=== PATIENT | female | born 1965 | race Caucasian/White ===

== ENCOUNTER 2024-08-13 09:34 | Outpatient (AMB) | payer OTHER, SELFPAY ==
--- NOTE | 2024-08-13 09:39 | MHC.PC.OV ---
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 Intake Note: New patient visit Allergies No Known Allergies Allergy (Verified 08/13/24 09:43) Tobacco use date assessed: 08/13/24 Dental Screening Dental Screen Date: 08/13/24 Did you have a dental visit in the last 12 months?: Yes Did you have a dental problem in the last 6 months where you did not have access to dental care?: No Was dental information given to patient?: Patient has dentist HPI HPI Comments History of Present Illness Details The patient is a 58-year-old female with a past medical history of hyperlipidemia, anxiety, panic attacks, PTSD, vaginal atrophy presenting for follow-up. She is transferring from [facility] before which she transferred from [place] Behavioral health: She was following with a psychiatrist [place]. On Prozac, trazodone and infrequently Ativan. She was getting EMDR treatments at the trauma center [place] which she has completed. She would like to see a therapist. We will continue to prescribe her medications. 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 She was referred to local OBGYN in her last visit. Following with Nancy Conti. On 2x/week estradiol Has a family history of skin cancer and was following with dermatology 2x annually in [place]. Needs local dermatology She has a history of neck, upper and low back pain. She has seen chiro and had trigger points in the past. She would like to pursue physiatry referral and would like someone local to do trigger point therapy Mammogram UTD Colonoscopy at age 47 and again at age 52 and was to repeat at age 62 ROS CONSTITUTIONAL: Denies weight loss, fever and chills. HEENT: Denies changes in vision and hearing. RESPIRATORY: Denies SOB and cough. CV: Denies palpitations and CP GI: Denies abdominal pain, nausea, vomiting and diarrhea. : Denies dysuria and urinary frequency. MSK: Denies new myalgia and joint pain. SKIN: Denies rash and pruritus. NEUROLOGICAL: Denies headache PSYCHIATRIC: Denies recent changes in mood. PHYSICAL EXAM: GENERAL: Alert and oriented x 3. NAD EYES: EOMI. Anicteric. HENT: Moist mucous membranes. No scleral icterus. No cervical lymphadenopathy. LUNGS: Clear to auscultation bilaterally. CARDIOVASCULAR: Regular rate and rhythm. No murmur. No JVD. ABDOMEN: Soft, non-tender +bs EXTREMITIES: No edema. Non-tender. SKIN: No rashes or lesions. Warm. NEUROLOGIC: No focal neurological deficits. CN II-XII grossly intact PSYCHIATRIC: Cooperative. Appropriate mood and affect [facility] Medical History (Updated 08/13/24 @ 10:27 by Lina Robin MD) Ganglion cyst of wrist Surgical History (Updated 08/13/24 @ 09:47 by Snow Garcia CMA) H/O: hysterectomy H/O rhinoplasty History of tonsillectomy Family History (Updated 08/13/24 @ 09:50 by Snow Garcia CMA) Mother Diabetes Breast cancer Hypercholesteremia COPD (chronic obstructive pulmonary disease) Maternal Grandmother Pancreatic cancer Breast cancer Paternal Grandmother Pancreatic cancer Hypercholesteremia Sister Breast cancer Father Glaucoma Other FH: mental illness Substance abuse Social History (Updated 08/13/24 @ 09:51 by Snow Garcia CMA) Housing: Apartment Alcohol intake: current Patient Tobacco Use Status: Never used Tobacco e-Cigarette/Vaping Use: Never Used Second Hand Smoke Exposure: Yes (past) service: No Current occupational status: retired Cognitive needs: No Hearing needs: No Vision needs: Yes (glasses) Questionnaire PHQ-9 Over the last 2 weeks, how often have you been bothered by any of the following problems? 1. Little interest or pleasure in doing things: not at all 2. Feeling down, depressed, or hopeless: not at all 3. Trouble falling or staying asleep, or sleeping too much: several days 4. Feeling tired or having little energy: not at all 5. Poor appetite or overeating: not at all 6. Feeling bad about yourself - or that you are a failure or have let yourself or your family down: not at all 7. Trouble concentrating on things, such as reading the newspaper or watching television: not at all 8. Moving or speaking so slowly that other people could have noticed. Or the opposite - being so fidgety or restless that you have been moving around a lot more than usual: not at all 9. Thoughts that you would be better off or of hurting yourself in some way: not at all Total score: 1 Depression Screening Interpretation: Negative Depression Screening Done: Yes 57876 - PHQ-9 Billing: Yes Source: Developed by Drs. Grady Pacheco, Chikis Salazar, Frederic Cummings and colleagues, with an educational nitin from [employer]. Thrive Questionnaire Date Thrive assessed: 08/13/24 I am a: Patient What is your living situation today?: I have a steady place to live Within the past 12 months, did the food you bought not last and you didn't have the money to get more?: Never true Within the past 12 months, did you worry whether your food would run out before you got money to buy more?: Never true Do you have trouble paying for medicines?: No Do you have trouble getting transportation to medical appointments?: No Do you have trouble paying your heating and electricity bill?: No Do you have trouble taking care of your child, family member or friend?: No Do you have trouble with day-to-day activities such as bathing, preparing meals, shopping, managing finances, etc.?: No Are you currently unemployed and looking for a job?: No Are you interested in more education?: No Please select the resources that you would like help with: None Currently or been in a relationship where the following occur: I choose not to answer THRIVE Score: 0 AUDIT C Alcohol Use Questionnaire (AUDIT-C) 1. How often do you have a drink containing alcohol?: 2-3 times a week 2. How many drinks containing alcohol do you have on a typical day when you are drinking?: 1 or 2 3. How often do you have six or more drinks on one occasion?: Never Total Score: 3 ALAN-7 AMB Questionnaire ALAN-7 Date ALAN - 7 assessed: 08/13/24 Feeling nervous, anxious, or on edge: 1 = Several days Not being able to stop or control worryin = Not at all Worrying too much about different things: 0 = Not at all Trouble relaxin = Not at all Being so restless that it is hard to sit still: 0 = Not at all Becoming easily annoyed or irritable: 0 = Not at all Feeling afraid as if something awful might happen: 0 = Not at all Total ALAN-7 score (0-4 normal; 5-9 mild; 10-14 moderate; 15-21 severe): 1 Source: Developed by Drs. Grady Pacheco, Chikis Salazar, Frederic Cummings and colleagues, with an educational nitin from [employer]. Physical exam (Primary Care) Vital Signs: Last Vital Signs Pulse 68 08/13/24 09:51 BP 104/64 08/13/24 09:51 Pulse Ox 97 08/13/24 09:51 Oxygen Delivery Method Room Air 08/13/24 09:51 BMI result Body Mass Index 24.9 Tobacco/Smoking Status: Tobacco use Status Patient Tobacco Use Status Never used Tobacco 08/13/24 09:51 PHQ-9: PHQ-9 Score PHQ-9: Total score 1 08/13/24 09:41 Depression Screening Interpretation: Negative Currently or been in a relationship where the following occur: I choose not to answer Coding Level of Care Code Est Pt Level 5 (32535) Diagnoses Chronic bilateral low back pain, unspecified whether sciatica present M54.50; G89.29 Chronicity: chronic Back pain laterality: bilateral Sciatica presence: unspecified whether sciatica present Cervicalgia M54.2 Family history of skin cancer Z80.8 Anxiety F41.9 MDD (major depressive disorder), recurrent, in partial remission F33.41 Time Spent (min) 45 Assessment & Plan Assessment & Plan (1) Low back pain: Code(s): M54.50 - Low back pain, unspecified Category: Medical Qualifiers: Chronicity: chronic Back pain laterality: bilateral Sciatica presence: unspecified whether sciatica present Qualified Code(s): M54.50 - Low back pain, unspecified; G89.29 - Other chronic pain Plan: referral to physiatry referral to [facility] (2) Cervicalgia: Code(s): M54.2 - Cervicalgia Category: Medical Plan: see above. stable (3) Family history of skin cancer: Code(s): Z80.8 - Family history of malignant neoplasm of other organs or systems Category: Medical Plan: referral placed to dermatology (4) Anxiety: Code(s): F41.9 - Anxiety disorder, unspecified Category: Medical Plan: stable on current medications. She is tapering down to 30mg on SSRI (5) MDD (major depressive disorder), recurrent, in partial remission: Code(s): F33.41 - Major depressive disorder, recurrent, in partial remission Category: Medical Plan: stable. referral to psychology Orders: Orders PT Evaluation and Treatment Today M54.2 - Cervicalgia, M54.50 - Low back pain, unspecified Referrals Physical Medicine and Rehabilitation Referral M54.2 - Cervicalgia, M54.50 - Low back pain, unspecified Dermatology Referral Z80.8 - Family history of malignant neoplasm of other organs or systems Medications: New fluoxetine (Prozac) 30 mg (3 x 10 mg) PO DAILY 90 days 270 caps 3RF lorazepam 0.5 mg PO BID 60 tabs 0RF Refilled trazodone 50 mg PO BEDTIME PRN 90 tabs 3RF sleep
[2024-08-13 09:51] VITALS: BP 104/64; PULSE 68; O2SAT 97; BMI 24.9
== END 2024-08-13 10:25 | disposition home or self-care (01) ==
LOC: HO.HMCFM 09:35
PROVIDERS: Visit Provider Internal Medicine
DX: M54.50 Low back pain, unspecified (principal); G89.29 Other chronic pain; F33.41 Major depressive disorder, recurrent, in partial remission; M54.2 Cervicalgia; Z80.8 Family history of malignant neoplasm of other organs or systems; F41.9 Anxiety disorder, unspecified

== ENCOUNTER 2024-11-08 15:42 | Outpatient (AMB) | payer OTHER, SELFPAY ==
--- NOTE | 2024-11-08 15:47 | A.OFFPC_ITS ---
Intake Visit Reasons: numb/cold fingers Intake Note: Numb cold fingers. Finger turn white and they are tingly. 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 She has pictures on her phone-consistent with classic raynauds. Behavioral health: She was following with a psychiatrist [place]. On Prozac, trazodone and infrequently Ativan. She was getting EMDR treatments at the trauma center [place] which she has completed. She would like to see a therapist. We will continue to prescribe her medications. CV: Hyperlipidemia is being monitored is mild. 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 She was referred to local OBGYN in her last visit. Following with Nancy Conti. On 2x/week estradiol Has a family history of skin cancer and was following with dermatology 2x annually in [place]. Needs local dermatology She has a history of neck, upper and low back pain. She has seen chiro and had trigger points in the past. She would like to pursue physiatry referral and would like someone local to do trigger point therapy Mammogram UTD Colonoscopy at age 47 and again at age 52 and was to repeat at age 62 ROS CONSTITUTIONAL: Denies weight loss, fever and chills. HEENT: Denies changes in vision and hearing. RESPIRATORY: Denies SOB and cough. CV: Denies palpitations and CP GI: Denies abdominal pain, nausea, vomiting and diarrhea. : Denies dysuria and urinary frequency. MSK: Denies new myalgia and joint pain. SKIN: Denies rash and pruritus. NEUROLOGICAL: Denies headache PSYCHIATRIC: Denies recent changes in mood. PHYSICAL EXAM: GENERAL: Alert and oriented x 3. NAD EYES: EOMI. Anicteric. HENT: Moist mucous membranes. No scleral icterus. No cervical lymphadenopathy. LUNGS: Clear to auscultation bilaterally. CARDIOVASCULAR: Regular rate and rhythm. No murmur. No JVD. ABDOMEN: Soft, non-tender +bs EXTREMITIES: No edema. Non-tender. SKIN: No rashes or lesions. Warm. NEUROLOGIC: No focal neurological deficits. CN II-XII grossly intact PSYCHIATRIC: Cooperative. Appropriate mood and affect [facility] Medical History (Updated 11/08/24 @ 16:17 by Lina Robin MD) Ganglion cyst of wrist Surgical History H/O: hysterectomy H/O rhinoplasty History of tonsillectomy Family History (Updated 08/13/24 @ 09:50 by Snow Garcia CMA) Mother Diabetes Breast cancer Hypercholesteremia COPD (chronic obstructive pulmonary disease) Maternal Grandmother Pancreatic cancer Breast cancer Paternal Grandmother Pancreatic cancer Hypercholesteremia Sister Breast cancer Father Glaucoma Other FH: mental illness Substance abuse Social History (Updated 11/08/24 @ 16:01 by Snow Garcia CMA) Housing: Apartment Alcohol intake: current Patient Tobacco Use Status: Never used Tobacco e-Cigarette/Vaping Use: Never Used Second Hand Smoke Exposure: Yes (past) Use of substances other than those prescribed or required for medical reasons: No service: No Current occupational status: retired Cognitive needs: No Hearing needs: No Vision needs: Yes (glasses) Questionnaire PHQ-9 Over the last 2 weeks, how often have you been bothered by any of the following problems? 1. Little interest or pleasure in doing things: not at all 2. Feeling down, depressed, or hopeless: not at all 3. Trouble falling or staying asleep, or sleeping too much: not at all 4. Feeling tired or having little energy: not at all 5. Poor appetite or overeating: not at all 6. Feeling bad about yourself - or that you are a failure or have let yourself or your family down: not at all 7. Trouble concentrating on things, such as reading the newspaper or watching television: not at all 8. Moving or speaking so slowly that other people could have noticed. Or the opposite - being so fidgety or restless that you have been moving around a lot more than usual: not at all 9. Thoughts that you would be better off or of hurting yourself in some way: not at all Total score: 0 Depression Screening Interpretation: Negative Depression Screening Done: Yes 08134 - PHQ-9 Billing: Yes Source: Developed by Drs. Grady Pacheco, Chikis Salazar, Frederic Cummings and colleagues, with an educational nitin from [employer]. Thrive Questionnaire Date Thrive assessed: 11/08/24 I am a: Patient What is your living situation today?: I have a steady place to live Within the past 12 months, did the food you bought not last and you didn't have the money to get more?: Never true Within the past 12 months, did you worry whether your food would run out before you got money to buy more?: Never true Do you have trouble paying for medicines?: No Do you have trouble getting transportation to medical appointments?: No Do you have trouble paying your heating and electricity bill?: No Do you have trouble taking care of your child, family member or friend?: No Do you have trouble with day-to-day activities such as bathing, preparing meals, shopping, managing finances, etc.?: No Are you currently unemployed and looking for a job?: No Are you interested in more education?: No Please select the resources that you would like help with: None Currently or been in a relationship where the following occur: No concerns reported THRIVE Score: 0 AUDIT C Alcohol Use Questionnaire (AUDIT-C) 1. How often do you have a drink containing alcohol?: 4 or more times a week 2. How many drinks containing alcohol do you have on a typical day when you are drinking?: 1 or 2 3. How often do you have six or more drinks on one occasion?: Never Total Score: 4 ALAN-7 AMB Questionnaire ALAN-7 Date ALAN - 7 assessed: 11/08/24 Feeling nervous, anxious, or on edge: 0 = Not at all Not being able to stop or control worryin = Not at all Worrying too much about different things: 0 = Not at all Trouble relaxin = Not at all Being so restless that it is hard to sit still: 0 = Not at all Becoming easily annoyed or irritable: 1 = Several days Feeling afraid as if something awful might happen: 0 = Not at all Total ALAN-7 score (0-4 normal; 5-9 mild; 10-14 moderate; 15-21 severe): 1 Source: Developed by Chikis Lozada Kurt Kroenke and colleagues, with an educational nitin from [employer]. ALAN-7 Assessment Billing ALAN-7 Assessment Tool: ALAN-7 Assessment 94710 Physical exam (Primary Care) Tobacco/Smoking Status: Tobacco use Status Tobacco use date assessed 11/08/24 11/08/24 16:02 Patient Tobacco Use Status Never used Tobacco 11/08/24 16:01 e-Cigarette/Vaping Use Never Used 11/08/24 16:01 PHQ-9: PHQ-9 Score PHQ-9: Total score 0 11/10/24 10:00 Depression Screening Interpretation: Negative Thrive Assessment: Date of Thrive Assessment Date Thrive assessed 11/08/24 11/08/24 16:02 Currently or been in a relationship where the following occur: No concerns reported Coding Level of Care Code Est Pt Level 4 (97072) Diagnoses Pain in both hands M79.641; M79.642 Laterality: bilateral Additional Codes ALAN-7 Assessment Billing - ALAN-7 Assessment Tool: ALAN-7 Assessment 13958 ([id number]) PHQ-9 - 07781 - PHQ-9 Billing: Yes ([id number]) Assessment & Plan Assessment & Plan (1) Hand pain: Code(s): M79.643 - Pain in unspecified hand Category: Medical Qualifiers: Laterality: bilateral Qualified Code(s): M79.641 - Pain in right hand; M79.642 - Pain in left hand Plan: Discussed raynauds, conservative vs pharmacologic treatment. She declines medication trial. Orders: Orders XR DEXA axial skeleton 11/08/24 M89.9 - Disorder of bone, unspecified, M94.9 - Disorder of cartilage, unspecified, R29.890 - Loss of height
== END 2024-11-08 16:39 | disposition home or self-care (01) ==
PROVIDERS: Visit Provider Internal Medicine
DX: M79.641 Pain in right hand (principal); M79.642 Pain in left hand

== ENCOUNTER → 2024-11-08 15:42 | Outpatient (BNVA) | payer OTHER, SELFPAY | PROVIDERS: Visit Provider Internal Medicine | DX: M79.641 Pain in right hand (principal); M79.642 Pain in left hand; E78.5 Hyperlipidemia, unspecified; F41.9 Anxiety disorder, unspecified; F43.10 Post-traumatic stress disorder, unspecified | CPT/HCPCS: 96127 ==

== ENCOUNTER 2025-04-28 08:29 | Outpatient (AMB) | payer OTHER, SELFPAY ==
--- OUTSIDE RECORDS SUMMARY | 2024-12-05 05:30 | XMS_ITS ---
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 * Medical History: Objective: * Vitals: Assessment: Plan: * Treatment: * Images: Billing Information: * Visit Code: * Procedure Codes: * Electronic signature of MOHSEN NAVARRO MD on 04/28/2025 at 08:36 AM EDT Sign off status: Pending * Provider: Ambika NAVARRO MD Date: 0 12/05/2024 Generated for Amparo panda/Wu/Samuel on: 0 04/28/2025 08:36 AM EDT
--- NOTE | 2025-04-28 08:35 | A.OFFPC_ITS ---
Vital Signs 04/28/25 08:45 Height 5 ft 1.81 in Weight 127 lb BMI 23.4 BP 110/64 Blood Pressure Location Lt brachial Position Sitting Respiration 12 Pulse 72 Pulse Source Pulse Oximeter Temp 98.3 F Temp Source Oral Pulse Oximetry (%) 98 Oxygen Delivery Method Room Air Intake Visit Reasons: physical exam Intake Note: Physical. Having diarrhea believed to be from dairy. Director Digital Catalogue Required: No Allergies No Known Allergies Allergy (Verified 04/28/25 08:38) Medication List - Last Reconciled 04/28/25 by Lina Robin MD estradiol (Yuvafem) 10 mcg vaginal 2XW estradiol 0.01%(0.1mg/gram) 1 g vaginal QWEEK fluoxetine 20 mg PO DAILY fluoxetine 10 mg PO DAILY loratadine (Claritin) 10 mg PO DAILY lorazepam 0.5 mg PO BID minoxidil 5% (Rogaine Extra Strength for Men) 1 mL topical BID trazodone 25 mg PO BEDTIME PRN Tobacco use date assessed: 04/28/25 Dental Screening Dental Screen Date: 04/28/25 Did you have a dental visit in the last 12 months?: Yes Did you have a dental problem in the last 6 months where you did not have access to dental care?: No Was dental information given to patient?: Patient has dentist HPI HPI Comments History of Present Illness Details The patient is a 59-year-old female with a past medical history of hyperlipidemia, anxiety, panic attacks, PTSD, vaginal atrophy presenting for annual Ongoing more frequent and loose stools. Spoke with patient who reports having diarrhea and headache 03/22 and 03/23/2025, then diarrhea on 03/25/2025. Patient reports since then she has had poorly formed amy colored stool and burning in the epigastric area, patient reports nausea but no vomiting. Patient reports not starting or stopping any medication. Patient reports starting an anti- inflammatory diet 3 months ago, no flour, no sugar. Patient reports taking 1000 mg of Tylenol 2 times weekly, ETOH use 3-4 drinks per week. Patient was seen in in the ER on vacation. Labs were normal. No imaging or stool testing Patient has been having ongoing cold hands, color changes in the fingers. She has pictures on her phone-consistent with classic raynauds. Behavioral health: She was following with a psychiatrist [place]. On Prozac, trazodone and infrequently Ativan. She was getting EMDR treatments at the trauma center [place] which she has completed. On prozac 30mg daily currently CV: Hyperlipidemia is being monitored is mild. 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 She was referred to local OBGYN in her last visit. Following with Nancy Conti. On 2x/week estradiol Has a family history of skin cancer and was following with dermatology 2x annually in [place]. Needs local dermatology-belen PATINO She has a history of neck, upper and low back pain. She has seen chiro and had trigger points in the past. She was referred to physiatry Mammogram ultrasound every 6 months Colonoscopy at age 47 and again at age 52 and was to repeat at age 62 ROS CONSTITUTIONAL: Denies weight loss, fever and chills. HEENT: Denies changes in vision and hearing. RESPIRATORY: Denies SOB and cough. CV: Denies palpitations and CP GI: Denies abdominal pain, nausea, vomiting and diarrhea. : Denies dysuria and urinary frequency. MSK: Denies new myalgia and joint pain. SKIN: Denies rash and pruritus. NEUROLOGICAL: Denies headache PSYCHIATRIC: Denies recent changes in mood. PHYSICAL EXAM: GENERAL: Alert and oriented x 3. NAD EYES: EOMI. Anicteric. HENT: Moist mucous membranes. No scleral icterus. No cervical lymphadenopathy. LUNGS: Clear to auscultation bilaterally. CARDIOVASCULAR: Regular rate and rhythm. No murmur. No JVD. ABDOMEN: Soft, non-tender +bs EXTREMITIES: No edema. Non-tender. SKIN: No rashes or lesions. Warm. NEUROLOGIC: No focal neurological deficits. CN II-XII grossly intact PSYCHIATRIC: Cooperative. Appropriate mood and affect [facility] Medical History Ganglion cyst of wrist Surgical History H/O: hysterectomy H/O rhinoplasty History of tonsillectomy Family History Mother Diabetes Breast cancer Hypercholesteremia COPD (chronic obstructive pulmonary disease) Maternal Grandmother Pancreatic cancer Breast cancer Paternal Grandmother Pancreatic cancer Hypercholesteremia Sister Breast cancer Father Glaucoma Other FH: mental illness Substance abuse Social History Housing: Apartment Alcohol intake: current Patient Tobacco Use Status: Never used Tobacco e-Cigarette/Vaping Use: Never Used Second Hand Smoke Exposure: Yes (past) Use of substances other than those prescribed or required for medical reasons: No service: No Current occupational status: retired Cognitive needs: No Hearing needs: No Vision needs: Yes (glasses) Questionnaire Thrive Questionnaire Date Thrive assessed: 11/08/24 I am a: Patient What is your living situation today?: I have a steady place to live Within the past 12 months, did the food you bought not last and you didn't have the money to get more?: Never true Within the past 12 months, did you worry whether your food would run out before you got money to buy more?: Never true Do you have trouble paying for medicines?: No Do you have trouble getting transportation to medical appointments?: No Do you have trouble paying your heating and electricity bill?: No Do you have trouble taking care of your child, family member or friend?: No Do you have trouble with day-to-day activities such as bathing, preparing meals, shopping, managing finances, etc.?: No Are you currently unemployed and looking for a job?: No Are you interested in more education?: No Please select the resources that you would like help with: None Currently or been in a relationship where the following occur: No concerns reported THRIVE Score: 0 AUDIT C Alcohol Use Questionnaire (AUDIT-C) 1. How often do you have a drink containing alcohol?: 4 or more times a week 2. How many drinks containing alcohol do you have on a typical day when you are drinking?: 1 or 2 3. How often do you have six or more drinks on one occasion?: Never Total Score: 4 ALAN-7 AMB Questionnaire ALAN-7 Date ALAN - 7 assessed: 11/08/24 Source: Developed by Drs. Grady Pacheco, Chikis Salazar, Frederic Cummings and colleagues, with an educational nitin from [employer]. Physical exam (Primary Care) Vital Signs: Last Vital Signs Temp 98.3 F 04/28/25 08:45 Pulse 72 04/28/25 08:45 Resp 12 04/28/25 08:45 BP 110/64 04/28/25 08:45 Pulse Ox 98 04/28/25 08:45 Oxygen Delivery Method Room Air 04/28/25 08:45 BMI result Body Mass Index 23.4 Tobacco/Smoking Status: Tobacco use Status Tobacco use date assessed 04/28/25 04/28/25 08:50 Patient Tobacco Use Status Never used Tobacco 04/28/25 08:51 e-Cigarette/Vaping Use Never Used 04/28/25 08:51 Thrive Assessment: Date of Thrive Assessment Date Thrive assessed 11/08/24 04/28/25 08:36 Currently or been in a relationship where the following occur: No concerns reported Coding Level of Care Code Est Pt Prev Care 40-64y(81374) Diagnoses Physical exam Z00.00 Loose stools R19.5 Assessment & Plan Assessment & Plan (1) Physical exam: Code(s): Z00.00 - Encounter for general adult medical examination without abnormal findings Category: Medical (2) Loose stools: Code(s): R19.5 - Other fecal abnormalities Category: Medical Plan 59 year old female for cpe Interval history reviewed Preventive measures for age discussed and UTD. anxiety/depression-stable continues to have loose and more frequent stools. She has cut out milk products. stool tests ordered, labs ordered Orders: Orders H pylori Ag Stool Today R19.5 - Other fecal abnormalities Ova and Parasite Today R19.5 - Other fecal abnormalities Giardia Ag Stool EIA Today R19.5 - Other fecal abnormalities Leukocytes Stool Qualitative Today R19.5 - Other fecal abnormalities Calprotectin, Fecal Today R19.5 - Other fecal abnormalities Pancreatic Elastase-1 Today R19.5 - Other fecal abnormalities Lipid Panel Today E78.5 - Hyperlipidemia, unspecified Referrals Gastroenterology Referral R19.5 - Other fecal abnormalities Dermatology Referral Z12.83 - Encounter for screening for malignant neoplasm of skin, Z80.8 - Family history of malignant neoplasm of other organs or systems Medications: Changed From fluoxetine 40 mg (2 x 20 mg) PO DAILY 90 days 180 caps 3RF To fluoxetine 20 mg PO DAILY
--- OUTSIDE RECORDS SUMMARY | 2025-04-28 08:36 | XMS_ITS | Clinical Summary ---
Author Organization [facility] Address [address] [place] [id number] Phone Care Team Providers Care Manager Pipeline Name Role Phone Lina Robin MD Primary Care Provider Allergies Active Allergy Reactions Criticality Noted Date Comments Atenolol Myositis,Other (See Comments) High 05/21/2012 Citalopram Other (See Comments),Unknown 05/21/2012 Pt felt disoriented while taking celexa Dog Dander Shortness Of Breath High 01/28/2020 Other reaction(s): Respiratory Distress House Dust Mite Shortness Of Breath High 01/28/2020 Other reaction(s): Respiratory Distress Levofloxacin Swelling 01/28/2020 Tender pain in ankles Paroxetine Hcl Headaches,Other (See Comments) 05/21/2012 Propranolol Myositis,Other (See Comments) High 05/21/2012 Medications FLUoxetine (PROZAC) 40 MG capsule Take 40 mg by mouth daily. Active traZODone (DESYREL) 50 MG tablet Take 50 mg by mouth nightly at bedtime. Active cetirizine (ZYRTEC) 10 MG tablet Take 1 tablet by mouth 2 (two) times a day. Active Encounters Date Type Department Care Team Description 03/19/2025 10:30 AM EDT Office Visit [address] [address] Jamil Beard MD Baran, [place] Anna, PT Cervicalgia (Primary Dx); Acute left-sided low back pain without sciatica 03/12/2025 10:30 AM EDT Office Visit [address] [address] Jamil Beard MD Baran, [place] Anna, PT Cervicalgia (Primary Dx); Acute left-sided low back pain without sciatica from Last 3 Months Social History Tobacco Use Types Packs/Day Years Used Date Smoking Tobacco: Never Assessed Education Answer Date Recorded Are you interested in more education? Not on lauri e 01/03/2024 Are you concerned about learning? Not on file 01/03/2024 No 01/03/2024 No 01/03/2024 Digital Access Answer Date Recorded No 01/03/2024 No 01/03/2024 Reliable internet access at home? Not on file 01/03/2024 Device with a working camera? Not on file Comments Unknown Sex and Gender Information Value Date Recorded Sex Assigned at Female 11/03/2023 3:47 PM EST Legal Sex Female 3:38 PM EST Gender Identity Female 11/03/2023 3:47 PM EST Sexual Orientation Bisexual 11/03/2023 3: 47 PM EST Last Filed Vital Signs Vital Sign Reading Time Taken Comments Blood Pressure 111/66 11/12/2024 8:57 AM EST Pulse 69 11/12/2024 8:57 AM EST Temperature 36.8 C (98.3 F) 06/30/2024 10:11 AM EDT Respiratory Rate 16 06/30/2024 10:11 AM EDT Oxygen Saturation 95% 06/30/2024 10:11 AM EDT Inhaled Oxygen Concentration - - Weight - - Height - - Body Mass Index - - Plan of Treatment Upcoming Encounters Date Type Department Care Team (Late st Contact Info) Description 04/30/2025 10:30 AM EDT Office Visit [facility] [address] [place] [address] Jamil Beard MD [facility] [place] [address] [email or web address] [email or web address] Arleen Bowles, PT [address] [place] [address] Health Maintenance Due Date Last Done Comments Adult Td,Tdap Booster 1967 DEPRESSION SCREENING 1979 SMOKING Hx and SMOKELESS TOBACCO SCREENING 1980 HEPATITIS C SCREENING 1985 HIV ONE-TIME SCREENING (18-6 5 YEARS) 1985 PAP SMEAR 1988 MAMMOGRAM 2007 COLOGUARD 2012 COLONOSCOPY 2012 COLORECTAL CANCER SCREENING 2012 FIT TEST 2012 FOBT 2012 SIGMOIDOSCOPY 2012 VIRTUAL COLONOSCOPY 2012 PNEUMOCOCCAL VACCINES (50+ years) (1 of 1 - PCV) 2017 ZOSTER VACCINES (1 of 2) 2017 LIPID PANEL 07/01/2020 07/01/2015 COVID-19 VACCINE (1 - 2023-2 5 season) 2024 HEPATITIS A VACCINES Aged Out 12/21/2012, 06/07/2012 No longer eligible based on patient's age to complete this topic HIB VACCINES Aged Out No longer eligi ble based on patient's age to complete this topic MENINGOCOCCAL VACCINES (ACWY) Aged Out No longer eligible based on patient's age to complete this topic MENINGOCOCCAL VACCINES (B) Aged Out N o longer eligible based on patient's age to complete this topic Medical Devices Not on file Insurance [employer] POS EPO [employer] POS EPO O [facility] EPO [facility] POS EPO Care Teams Manager Pipeline Relationship Specialty Start Date End Date Lina Robin MD PCP - General Internal Medicine 11/03/23 Additional Source Comments The information contained in this document represents components of the legal health record. It is not the complete legal health record.[facility]
--- OUTSIDE RECORDS SUMMARY | 2025-04-28 08:37 | XMS_ITS | Patient Health Record ---
Author Organization [facility] Address [address] [place], [place] [id number] Care Team Providers Care Strategic Account Manager Name Role Phone Other, Tourist Primary Care Provider Robi Hargrove Unavailable Unavailable Allergies No Known Allergies Reason For Referral No Information Medications Medication SIG (Take, Route, Fr equency, Duration) Notes Start Date End Date Status PROzac 40 mg 1 cap(s) orally once a day Active traZODone 50 mg 1 tab(s) orally Once daily Active Immunizations Vaccine Route Administration Date Status Comme nts COVID-19 Bivalent Moderna Dose 1 (0.5ml) IM Intramuscular 08/15/2022 Administered eua given COVID-19 Moderna-External Unknown 04/09/2021 Administer ed COVID-19 Moderna-External Unknown 04/30/2021 Administer ed COVID-19 Moderna-External Unknown 10/04/2021 Administer ed COVID-19 Moderna-External Unknown 03/22/2021 Administer ed Social History Tobacco Use: Social History Observation Description Date Details (start date - stop date) Never Smoker NA - NA Tobacco Use: Question Answer Notes Are you a: Never smoked Section Notes: updated 06/14/22 zw PS Hx Single. No children. Nonsmoker, drinks once a day but feels she has no ETOH abuse updated 08/15/22im Problems Problem Type SNOMED Code ICD Code Onset Dates Problem Status W/U Status Risk Notes Problem Dyslipidemia (453316066) Dyslipidemia (E78.5) Active confirmed Problem Sciatica (85108090) Low back pain with radiation (M54.40) Active confirmed Problem Personal risk factor (984010754) Osteoporosis/ost eopenia increased risk (Z91.89) Active confirmed Plan Of Treatment No Information Insurance Providers Payer Name Payer Address Payer Phone Subscriber Number Group Number Insured Name Patient Relationship to Insured Coverage Start Date Coverage End Date [employer] [facility] [address] [address] [place] [address] [id number] Luis Alfredo Munoz Self - patient is the insured 2 Medical (General) History Medical History History ICD Code dyslipidemia Anxiety/depression
--- OUTSIDE RECORDS SUMMARY | 2025-04-28 08:37 | XMS_ITS | Data Portability ---
Author Organization [facility], Main Office Address [address] [place] [address] [address] [place] [address] Care Team Providers Care Masking Machine Feeder Name Role Phone CROW HUDSON Primary Care Provider Assessment No assessment recorded. Plan of Treatment Reminders Order Date Submit Date Provider Last Modified By Organization Details Last Modified Time Details Appointments None recorded. Lab None recorded. Referral None recorded. Procedures None recorded. Surgeries None recorded. Imaging None recorded. Medication Orders metronidazo le 0.75 % topical cream 2024 025 [id number], [address] [place], [place], [id number], 13:38:50 Patient TargetsNo targets recorded. Patient Instructions Encounter Date Encounter Id Patient Instructions Last Modified By Organization Details Last Modified Time 03/17/2023 [id number] actinic keratosis: care instructions anasir Not available 03/17/2023 12:00:12 01/30/2024 [id number] actinic keratosis: care instructions anasir Not available 01/30/2024 12:22:27 08/06/2024 [id number] actinic keratosis: care instructions anasir Not available 08/06/2024 11:54:40 03/28/2025 [id number] rosacea: care instructions anasir Not available 03/28/2025 13:38:45 actinic keratosis: care instructions anasir Not available 03/28/2025 13:38:45 Reason for Referral None Reported. Problems Name Problem SNOMED Code Status Onset Date Resolution Date Notes Provider Name and Address Organization Details Recorded Time Neoplasm of skin [id number] [facility] [place] [address]son,[address], [place], [address], [facility] 6 13:36:19 Disorder of skin 94567742 Cecilio Cuevas MD Wendy Hopson,[address], [place], [address], [facility] 6 13:36:19 Ganglion of wrist 216952796 Cecilio Cuevas MD KyaSulma Lukasz Hopson,[address], [place], [address], [facility] 6 13:36:19 Dysplastic nevus of skin 233399719 Cecilio Cuevas MD KyaSulma Lukasz Hopson,[address], [place], [address], [facility] 6 13:36:19 Epidermal nevus 970353508 Cecilio Cuevas MD [address] [place] [address] Chi Hopson,[address], [place], [address], [facility] 6 13:37:47 Postmenopausal androgenetic alopecia [id number] Cecilio Cuevas MD [address] [place] [address] Chi Hopson,[address], [place], [address], [facility] 6 13:36:19 Lentigo simplex [id number] Cecilio Cuevas MD [address] [place] [address] Chi Hopson,[address], [address], [facility] 6 13:37:47 Multiple benign melanocytic nevi [id number] MD Kya Seo[address] [place], [place] [address]norma Hopson,[address] [place] [address], [address], [facility] 6 13:37:47 Scar [id number] MD Wendy Seo Lal Chi Hopson,[address], [place], [address], [facility] 6 13:36:19 Inflamed seborrheic keratosis 727488461 Active MD Wendy Dumont,[address], [place], [address], [facility] 6 13:36:19 Cyst of skin 694384553 Active MD Wendy Dumont,[address], [place], [address], [facility] 6 13:37:47 Contusion 046985072 Active MD Wendy Dumont,[address], [place], [address], [facility] 6 13:37:47 Disorder of skin and/or subcutaneous tissue 53758766 Active MD Wendy Dumont,[address], [place], [address], [facility] 6 13:36:19 Problem Notes None recorded. Procedures Surgical History Date Name Laterality Status Provider Name and Address Organization Details Recorded Time 06/02/20 20 Shave Biopsy completed MD Wendy Dumont,[address], [address], [facility] 06/02/2020 09:10:46 03/28/20 19 Shave Biopsy completed MD Wendy Dumont,[address], [address], [facility] 03/29/2019 08:06:11 03/29/20 18 Shave Biopsy completed MD Wendy Dumont,[address] [place] [address], [address], [facility] 03/29/2018 10:38:15 08/30/20 17 Destructions completed MD Wendy Dumont,[address] [place] [address], [address], [facility] 08/30/2017 16:00:21 04/14/20 15 Destructions completed MD Wendy Dumont,[address], [address], [facility] 04/14/2015 11:03:58 Dermatology Excision completed Bethany Cuevas MD [facility] [address], [address], [facility] 10/14/2014 12:22:14 Imaging Results None recorded. Procedure Notes None recorded. Medical Equipment None Reported. Allergies Allergen ID Allergen Name Allergen Category Reaction Reaction Severity Criticality Documentation Date Start Date Code Code System Note Provider Name and Address Organization Details Recorded Time 91023 atenolol medicatio n other Not available Not available 03/28/20252015 1202 RxNorm Bethany Cuevas MD [address] [place] [address] Chi Hopson,[address] [place] [address], [address], [facility] 5 13:36:51 [id number] citalopra m medicatio n other Not available Not available 03/28/20252015 2556 RxNorm Pt felt disor iente d while allen lewis a Bethany Cuevas MD [address] [place] [address] Chi Hopson,[address] [place] [address], [address], [facility] 5 13:36:57 41733 Canis lupus familiari s extract environme nt dyspnea Not available [facility] 03/28/20252019 61926 4 RxNorm Other react ion(s ): Respi rator y Distr ess Bethany Cuevas MD [address] [place] [address] [address] [place] [address], [address], [facility] 5 13:37:00 36725 levofloxa kvng medicatio n swelling Not available Not available 03/28/20252019 90798 RxNorm Tende r pain in ankle s Bethany Cuevas MD [facility] [place] [address], [address], [facility] 5 13:37:02 71593 Fijian house dust mite allergeni c extract medicatio n dyspnea Not available high 03/28/20252019 86002 77 RxNokrystal Cuevas MD [address], [place], [address], [facility] 5 13:37:04 03296 paroxetin e hydrochlo ride medicatio n other Not available Not available 03/28/20252015 92812 0 RxRey Cuevas MD [address], [place], [address], [facility] 5 13:37:09 72612 propranol ol medicatio n other Not available Not available 03/28/20252015 [id number] Rob Cuevas MD [address] Emiliana,[address], [place], [address], [facility] 5 13:37:21 Medications Name Sig Start Date Stop Date Status Note LastModified by Organization Details LastModified Time Singulair 10 mg tablet 11/23 completed Not Available Not Available Not Available amoxicillin 500 mg capsule TAKE 1 CAPSULE BY MOUTH EVERY 8 HOURS active Not Available Not Available No t Available prednisone 10 mg tablet 11/23 completed Not Available Not Available Not Available doxycycline hyclate 100 mg capsule TAKE 1 CAPSULE BY MOUTH TWICE DAILY UNTIL GONE active Not Available Not Available No t Available trazodone 50 mg tablet TAKE 1 TABLET ORALLY AT BEDTIME NEEDED FOR SLEEP active Not Available Not Available No t Available cetirizine 10 mg tablet take 1 tablet by mouth twice a day active Not Available Not Available No t Available azithromyci n 250 mg tablet 11/23 completed Not Available Not Available Not Available hydrocodone 5 mg-acetamin ophen 325 mg tablet active Not Available Not Available No t Available fluoxetine 10 mg tablet 11/23 completed Not Available Not Available Not Available triamcinolo ne acetonide 0.1 % topical cream APPLY THIN LAYER TOPICALLY TO THE AFFECTED AREA TWICE DAILY active Not Available Not Available No t Available prednisone 10 mg tablets in a dose pack take by mouth every morning as directed take with food active Not Available Not Available No t Available lorazepam 0.5 mg tablet TAKE 1 TABLET BY MOUTH TWICE A DAY active Not Available Not Available No t Available metronidazo le 0.75 % topical cream APPLY A THIN LAYER TO THE AFFECTED AREA(S) BY TOPICAL ROUTE 2 TIMES PER DAY IN THE MORNING AND EVENING 2024 active Not Available Not Available Not Avai lable fluoxetine 10 mg capsule TAKE 3 CAPSULES BY MOUTH EVERY DAY FOR 90 DAYS active Not Available Not Available No t Available Lupron Depot 3.75 mg intramuscul ar syringe kit 11/23 completed Not Available Not Available Not Available etodolac 400 mg tablet 11/23 completed Not Available Not Available Not Available azelastine 137 mcg (0.1 %) nasal spray USE 2 SPRAYS IN EACH NOSTRIL TWICE A DAY active Not Available Not Available No t Available levofloxaci n 500 mg tablet 11/23 completed Not Available Not Available Not Available estradiol 0.01% (0.1 mg/gram) vaginal cream APPLY SMALL AMOUNT TOPICALLY 2 TO 3 TIMES WEEKLY active Not Available Not Available No t Available scopolamine 1 mg over 3 days transdermal patch APPLY 1 PATCH TOPICALLY TO THE SKIN EVERY 72 HOURS active Not Available Not Available No t Available cefdinir 300 mg capsule 11/23 completed Not Available Not Available Not Available fluoxetine 20 mg capsule TAKE 2 CAPSULES BY MOUTH DAILY active Not Available Not Available No t Available amoxicillin 875 mg-potassiu m clavulanate 125 mg tablet TAKE 1 TABLET BY MOUTH TWICE DAILY FOR 7 DAYS. TAKE WITH FOOD. TAKE PROBIOTIC FOR NEXT 2 TO 3 WEEKS. active Not Available Not Available No t Available tretinoin microsphere s 0.04 % topical gel apply to affected area at bedtime as directed active Not Available Not Available No t Available estradiol 10 mcg vaginal tablet TAKE 1 TABLET INTRAVAGI CAMMIE TWICE A WEEK active Not Available Not Available No t Available Xifaxan 550 mg tablet 11/23 completed Not Available Not Available Not Available azelastine 137 mcg-flutica sone 50 mcg/spray nasal spray instill 1 spray into each nostril twice a day active Not Available Not Available No t Available Vitals None Recorded Social History Question Answer Notes LastModified by Organizat ion Details LastModified Time Tobacco Smoking Status Never Smoker Not Available [facility] 08/04/2020 03:19:54 Tanning Bed Use? Previous Use [email or web address] Information not available 10/14/2015 What Was The Date Of Your Most Recent Tobacco Screening? 03/29/2019 [email or web address] Information not available 11/24/2020 Do You Use Sunscreen Routinely? Yes 30+ [id number] Information not available 08/04/2020 Sex: Unknown Functional Status Question Answer Note LastModified by Organizat ion Details LastModified Time What is your level of alcohol consumption? Occasional [id number] Information not available 08/04/2020 Mental Status None recorded. Family History Relationship Description Onset Age of this Age Resolved Age Notes LastModified by Organization Details LastModified Time Father Malignant melanoma 35 anasir Not available 2020 10:08:00 Sister Malignant melanoma 38 anasir Not available 2020 10:08:00 Notes:mother breast cancer Medical History Condition Response Coronary Artery Disease N Gout N Other N Blood Diseases N Kidney Stones N Hyperthyroidism N Breast Cancer N Blood Transfusion N mrsa exposure N Atypical nevi Y Depression N COPD N Lung Disease N Hypothyroidism N Developmental or Behavioral Disorders N Defects or Inherited Disease N Selective lymph node dissection N Breast Problem N Pacemaker N Anesthesia Complications N Skin Cancer: Squamous Cell Carcinoma N Skin Cancer: Melanoma invasive N Meniere's disease N Actinic Keratosis N Anxiety Disorder N Muscle, Joint, or Bone Problems N Obesity N Vision or Eye Problems N Arthritis N Polyps N Infertility N Chronic ear infections N Mental Disorder N Cancer N Varicosities N Stroke N ADHD N Artificial Joint(s) N Radiation therapy N Endometriosis N Bladder or Kidney Problems N Skin Cancer: Basal Cell Carcinoma N High Cholesterol N Skin cancer: Other N Liver Disease N Fibromyalgia N Headaches N Kidney Disease N Heart Problems N Skin Cancer: Melanoma in situ N Ear or Hearing Problems N Hospitalizations N Chemotherapy N Thyroid Problems N GI Problems N Skin Problems Y Eating Disorder N Anemia N Constipation N Mental Illness N Ovarian Cancer N Diabetes N Difficulty swallowing N Seizures/Epilepsy N Tuberculosis N AIDS/HIV N Congestive Heart Failure (CHF) N Eczema N Diverticulitis N Abuse/Domestic Violence N Nasal polyps N Asthma N Allergies N Reflux/GERD N Hepatitis N Heart Disease N Pulmonary Embolism N Hypertension N Osteoporosis N Chicken Pox N Autism Spectrum Disorder (ASD) N Thrombophilias N Gynecological HistoryNo gynecological history recorded. Obstetrics History GPAL:G 0 P 0 0 0 0 Past Encounters Encounter ID Performer Location Encounter Start Date Encounter Closed Date Diagnosis/Indication Diagnosis SNOMED-CT Code Diagnosis ICD10 Code Diagnosis Note [id number] Bethany Cuevas MD Main Office [address] [place], [place] [address]ONE [address] [place] [address] 10/14/2014 12:08:11 10/14/2014 12:23:28 Neoplasm of skin 612652392 Nevus vs dysplastic nevus vs SK vs Lentigo Disorder of skin 94827931 Lentigo simplex 908237596 Epidermal nevus 313642031 Ganglion of wrist 573625955 [id number] Bethany Cuevas MD Main Office [address] [place], [place] [address]ONE [address] [place] [address] 04/14/2015 10:53:27 04/14/2015 11:12:07 Multiple benign melanocytic nevi 642219332 Scar 077627980 Inflamed s eborrheic keratosis 586047091 [id number] Bethany Cuevas MD Main Office [address] [place], [place] [address] [place] [address] 10/14/2015 10:25:15 10/14/2015 10:49:52 Cyst of skin 541552932 N47.4 chest, reassured discussed health/fam shelly history Contusion 596821600 T14. 8 R flexor forearm, reassured L leg, reassured Multiple b enign melanocytic nevi 384134647 D22.5 Epidermal nevus 65996909 7 D22.9 Lentigo simplex 64643596 0 L81.4 [id number] Bethany Cuevas MD Main Office [address] [place], [place] [address] [place] [address] 06/28/2016 16:04:44 06/28/2016 16:36:25 Multiple skin tags 076360440 L91.8 Benign. No treatment necessary. Reassuranc e. Multiple b enign melanocytic nevi 530782888 D22.5 Benign. No treatment necessary. Reassuranc e. Multiple a ngiomatous nevi of skin 119257921 D18.01 Benign. No treatment necessary. Reassuranc e. Lentigo 765701017 L81.4 Benign. No treatment necessary. Reassuranc e. [id number] Bethany Cuevas MD Main Office [address] [place], [place] [address] [place] [address] 01/11/2017 16:18:55 01/11/2017 16:40:30 Multiple benign melanocytic nevi 802060239 D22.5 Benign. No treatment necessary. Reassuranc e. Lentigo simplex 47686853 0 L81.4 Cyst of skin 891765330 N 47.4 chest, reassured discussed health/fam shelly history Epidermal nevus 67092568 7 D22.9 Ganglion of wrist 569624 009 M67.439 Postmenopa usal androgenetic alopecia 984882249 L64.8 Keloid scar 03098301 L91 .0 RLQ at site of laparoscop ic KAYLYN scar; rx'd w/ [place] Kenalog 3, 0.1 cc [id number] Bethany Cuevas MD Main Office [address] [place], [place] [address] [place] [address] 08/30/2017 15:34:16 08/30/2017 16:08:47 Multiple benign melanocytic nevi 087226409 D22.5 Benign. No treatment necessary. Reassuranc e. Lentigo simplex 20828084 0 L81.4 Cyst of skin 667362086 L 72.0 Epidermal nevus 54642985 7 D22.9 Ganglion of wrist 863266 009 M67.439 Multiple skin tags 66385 7009 L91.8 Benign. No treatment necessary. Reassuranc e. Multiple a ngiomatous nevi of skin 784562414 D18.01 Benign. No treatment necessary. Reassuranc e. Lentigo 448368483 L81.4 Benign. No treatment necessary. Reassuranc e. Inflamed s eborrheic keratosis 821650088 L82.0 [id number] Bethany Cuevas MD Main Office [address] [place], [place] [address]payByMobileI [address] [place] [address] 03/29/2018 08:59:30 03/29/2018 09:39:41 Multiple benign melanocytic nevi 904332316 D22.5 Benign. No treatment necessary. Reassuranc e. Lentigo simplex 35686396 0 L81.4 Cyst of skin 753188832 N 47.4 chest, reassured discussed health/fam shelly history Epidermal nevus 89565473 7 D22.9 Ganglion of wrist 613307 009 M67.439 Postmenopa usal androgenetic alopecia 686470121 L64.8 Keloid scar 21982069 L91 .0 RLQ at site of laparoscop ic KAYLYN improving Neoplasm o f uncertain behavior of skin 91885271 D48.5 [id number] Bethany Cuevas MD Main Office [address] [place] [address] [address] [place] [address] 09/25/2018 15:50:20 09/25/2018 16:19:24 Multiple benign melanocytic nevi 883658427 D22.5 Benign. No treatment necessary. Reassuranc e. Lentigo simplex 96532594 0 L81.4 Samples of Finacea given. Cyst of skin 448625133 N 47.4 chest, reassured discussed health/fam shelly history Epidermal nevus 11016379 7 D22.9 Ganglion of wrist 626644 009 M67.439 Postmenopa usal androgenetic alopecia 214704100 L64.8 Keloid scar 46320259 L91 .0 RLQ at site of laparoscop ic KAYLYN improving [id number] Bethany Cuevas MD Main Office [address] [place] [address] [place] [address] 03/28/2019 15:45:50 03/28/2019 16:18:42 Multiple benign melanocytic nevi 721891877 D22.5 Benign. No treatment necessary. Reassuranc e. Lentigo simplex 10894035 0 L81.4 Samples of Finacea given. Cyst of skin 519391748 N 47.4 chest, reassured discussed health/fam shelly history Epidermal nevus 97807642 7 D22.9 Ganglion of wrist 912647 009 M67.439 Postmenopa usal androgenetic alopecia 234204700 L64.8 Keloid scar 97066723 L91 .0 RLQ at site of laparoscop ic KAYLYN resolved [place] - lesion 224923163 L84 Neoplasm o f uncertain behavior of skin 86448875 D48.5 [id number] Bethany Cuevas MD Main Office [address] [place] [address] 09/25/2019 15:13:29 09/25/2019 15:50:56 Multiple benign melanocytic nevi 473537345 D22.5 Benign. No treatment necessary. Reassuranc e. Lentigo simplex 24467020 0 L81.4 Samples of Finacea given. Cyst of skin 707314076 N 47.4 chest, reassured discussed health/fam shelly history Epidermal nevus 35302738 7 D22.9 Ganglion of wrist 238640 009 M67.439 Postmenopa usal androgenetic alopecia 162572799 L64.8 Keloid scar 95553569 L91 .0 RLQ at site of laparoscop ic KAYLYN resolved [place] - lesion 504440311 L84 [id number] Bethany Cuevas MD Main Office [address] [place] [address] 06/02/2020 08:51:55 06/02/2020 09:31:51 Multiple benign melanocytic nevi 287729956 D22.5 Benign. No treatment necessary. Reassuranc e. Lentigo simplex 33306988 0 L81.4 Samples of Finacea given. Cyst of skin 178026568 N 47.4 chest, reassured discussed health/fam shelly history Epidermal nevus 15572330 7 D22.9 Ganglion of wrist 974787 009 M67.439 Postmenopa usal androgenetic alopecia 773679099 L64.8 Keloid scar 76574657 L91 .0 RLQ at site of laparoscop ic KAYLYN resolved [place] - lesion 043444632 L84 Mosquito bite 273330235 W57.XXXA Neoplasm o f uncertain behavior of skin 48947391 D48.5 [id number] Bethany Cuevas MD Main Office [address] [place] [address] 11/24/2020 09:59:21 11/24/2020 10:26:35 Multiple benign melanocytic nevi 032019142 D22.5 Benign. No treatment necessary. Reassuranc e. Lentigo simplex 16218579 0 L81.4 Samples of Finacea given. Cyst of skin 831762199 N 47.4 chest, reassured discussed health/fam shelly history Epidermal nevus 22858950 7 D22.9 Ganglion of wrist 553467 009 M67.439 Postmenopa usal androgenetic alopecia 006578671 L64.8 Keloid scar 22858788 L91 .0 RLQ at site of laparoscop ic KAYLYN resolved [place] - lesion 567754657 L84 [id number] Natalie Topete MD Main Office [address] [place] [address] [address] [place] [address] 01/08/2021 08:53:33 01/08/2021 09:11:35 Scalp folliculitis 797805419 L73.8 Rare papule on L parietal scalp. Benign. Reassuranc e. Eruption 785091425 R21 [place] patches with moderate scale on bilateral elbows. [place] papules and macules with minimal scale on antecubita l fossa and L hip. Ddx eczema vs psoriasis. Start Triamcinol one BID for 2 weeks then PRN for flares. Discussed risks and expectatio ns and dry skin handout given. If not improving in 1 month with topical steroids, will RTC for reevaluati on. Reassuranc e. [id number] Bethany Cuevas MD Main Office [address] [place], [place] [address] [place] [address] 01/06/2022 13:29:15 01/06/2022 13:57:52 Multiple benign melanocytic nevi 819913127 D22.5 Benign. No treatment necessary. Reassuranc e. Lentigo simplex 02194104 0 L81.4 Samples of Finacea given. Cyst of skin 223898123 N 47.4 chest, reassured discussed health/fam shelly history Epidermal nevus 34718896 7 D22.9 Ganglion of wrist 925973 009 M67.439 Postmenopa usal androgenetic alopecia 251517055 L64.8 Keloid scar 55336494 L91 .0 RLQ at site of laparoscop ic KAYLYN resolved [place] - lesion 538620174 L84 [id number] Bethany Cuevas MD Main Office [address] [place], [place] [address] [place] [address] 09/23/2022 08:58:14 09/23/2022 09:37:18 Multiple benign melanocytic nevi 631406977 D22.5 Benign. No treatment necessary. Reassuranc e. Lentigo simplex 42031800 0 L81.4 Samples of Finacea given. Cyst of skin 903859839 N 47.4 chest, reassured discussed health/fam shelly history Epidermal nevus 32596877 7 D22.9 Ganglion of wrist 524771 009 M67.439 Keloid scar 29318760 L91 .0 RLQ at site of laparoscop ic KAYLYN resolved [place] - lesion 151582880 L84 [id number] Bethany Cuevas MD Main Office [address] [place] [address] [address] [place] [address] 03/17/2023 11:33:18 03/17/2023 11:57:47 Multiple benign melanocytic nevi 798734817 D22.5 Benign. No treatment necessary. Reassuranc e. Lentigo simplex 39707969 0 L81.4 Samples of Finacea given. Cyst of skin 028696232 N 47.4 chest, reassured discussed health/fam shelly history Epidermal nevus 80477779 7 D22.9 Ganglion of wrist 221094 009 M67.439 Keloid scar 30788598 L91 .0 RLQ at site of laparoscop ic KAYLYN resolved [place] - lesion 629097710 L84 Actinic keratosis 372701 007 L57.0 R adventist rx w/ LN2 [id number] Bethany Cuevas MD Main Office [address] [place] [address] [address] [place] [address] 01/30/2024 09:52:31 01/30/2024 11:05:19 Multiple benign melanocytic nevi 128035379 D22.5 Benign. No treatment necessary. Reassuranc e. Lentigo simplex 41540636 0 L81.4 Samples of Finacea given. Cyst of skin 304622860 N 47.4 chest, reassured discussed health/fam shelly history Epidermal nevus 50140638 7 D22.9 Ganglion of wrist 201871 009 M67.439 Keloid scar 22377345 L91 .0 RLQ at site of laparoscop ic KAYLYN resolved [place] - lesion 231845287 L84 Actinic keratosis 393360 007 L57.0 L adventist rx w/ LN2 [id number] Bethany Cuevas MD Main Office [address] [place] [address] [place] [address] 08/06/2024 11:28:15 08/06/2024 11:54:21 Multiple benign melanocytic nevi 281065337 D22.5 Benign. No treatment necessary. Reassuranc e. Lentigo simplex 95029732 0 L81.4 Samples of Finacea given. Cyst of skin 859679922 N 47.4 chest, reassured discussed health/fam shelly history Epidermal nevus 59490552 7 D22.9 Ganglion of wrist 177091 009 M67.439 Keloid scar 22557425 L91 .0 RLQ at site of laparoscop ic KAYLYN resolved [place] - lesion 759458973 L84 Actinic keratosis 211949 007 L57.0 L adventist rx w/ LN2 [id number] Bethany Cuevas MD Main Office [address] [facility] [address] [place] [address] 03/28/2025 13:22:53 03/28/2025 13:42:04 Multiple benign melanocytic nevi [id number] D22.5 Benign. No treatment necessary. Reassuranc e. Lentigo simplex 72807452 0 L81.4 Samples of Finacea given. Cyst of skin 658231896 N 47.4 chest, reassured discussed health/fam shelly history Epidermal nevus 77601544 7 D22.9 Ganglion of wrist 470590 009 M67.439 Keloid scar 37920606 L91 .0 RLQ at site of laparoscop ic KAYLYN resolved [place] - lesion 012243463 L84 Actinic keratosis 147895 007 L57.0 L adventist rx w/ LN2 Rosacea 260539203 L71.9 L71.8 Health Concerns Section Related Observation LastModified by Organization Detai ls LastModified Time None Recorded Concern Status LastModified by Organization Details LastModified Time None Recorded Advance Directives Directive None Recorded Payers Insurance Date Sequence Insurance Name Policy Number Policy [place] Covered Member ID [place] Member ID Guarantor Name 09/19/2023 1 [employer] (POS II) [id number] Tricia I Jesus Alberto [id number] Tricia I Jesus Alberto 09/19/2023 1 [employer] (POS II) [id number] Tricia I Jesus Alberto [id number] Tricia I Jesus Alberto 01/30/2024 1 *SELF PAY* De jennifer I Tammy 08/30/2017 1 *SELF PAY* De jennifer I Tammy 09/19/2023 1 [employer] Tricia Munoz [id number] Tricia Munoz 06/28/[address] [place] [id number] [facility] [id number] Tricia Munoz 04/02/2019 1 *SELF PAY* [place] 09/19/2023 1 [facility] [id number] Tricia Munoz [id number] Tricia Munoz 03/17/2023 1 *SELF PAY* [place] Notes Date Note Type Note Provider Name and Address Organization Details Recorded Time 09/23/2022 text/html Mole/Body CheckReported bypatient.Context:c hanging moles or growths, see Location of Condition (as above) Medical History:patient accepts full body examination Behavioral history:sunscreen 50SPF, please list brand;tanning salon(Previous use in late s) 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 Describe type and location for each family memberNotes:Patient recently had hysterectomy (02/11/16) Bethany Cuevas MD [address] [facility],[address] [facility], [place], [address], [facility] 03/28/2025 13:39:03 OBGyn Episode No OBEpisode recorded.
[2025-04-28 08:45] VITALS: BP 110/64; PULSE 72; RESP 12; TEMP 36.8; O2SAT 98; BMI 23.4
== END 2025-04-28 10:18 | disposition home or self-care (01) ==
LOC: HO.HMCFM 08:30
PROVIDERS: Visit Provider Internal Medicine
DX: Z00.00 Encounter for general adult medical examination without abnormal findings (principal); R19.5 Other fecal abnormalities